=== PATIENT | male | born 1965 | race Two or more races ===

== ENCOUNTER 2023-10-25 06:55 | Day surgery (SDC) | payer OTHER ==
[2023-10-18 11:13] LABS: URINE APPEARANCE Clear; URINE BILIRRUBIN Negative (NEGATIVE); URINE BLOOD Negative; URINE COLOR Yellow; URINE GLUCOSE Negative (NEGATIVE); URINE LEUKOCYTE Negative; URINE NITRATE Negative; URINE PROTEIN Negative (NEGATIVE)
[2023-10-18 11:16] LABS: HEMATOCRIT 44.6 % (39.0-48.0); HEMOGLOBIN 15.7 g/dL (13-16.00); MEAN CELL VOLUME 91.8 fL (80.0-100.00); MEAN CORPUSCULAR HEMOGLOBIN 32.2 pg (27.00-32.0); MEAN CORPUSCULAR HGB CONC 35.1 g/dl (32.0-36.0); PLATELET COUNT 189 K/uL (150-450); RED BLOOD COUNT 4.86 M/uL (4.00-6.00)
[2023-10-18 11:17] LABS: URINE BACTERIA 12.5 uL (0.0-1933); URINE EPITHELIAL CELLS 1.6 uL (0.0-38.8); URINE WBC 4.7 uL (0.0-23.2)
[2023-10-18 11:28] LABS: INR 0.97; PARTIAL THROMBOPLASTIN TIME 29.4 SECONDS (22.0-34.0); PROTHROMBIN TIME 10.2 SECONDS (9.0-11.5)
[2023-10-18 11:35] LABS: ALBUMIN 3.7 gm/dL (3.4-5.0); BILIRUBIN TOTAL 0.54 mg/dL (0.3-1.2); CALCIUM 9.2 mg/dL (8.5-10.1); CREATININE SERUM 0.95 mg/dL (0.70-1.30); GFR 81.43; POTASSIUM 4.13 mEq/L (3.5-5.1); TOTAL PROTEIN 7.7 gm/dL (6.4-8.2)
[2023-10-18 11:41] LABS: URINE RBC 1.7 uL (0.0-20.8)
[~2023-10-25] VITALS: Ht 172.7 cm; Wt 72.6 kg
[~2023-10-25 06:55] MED LIST: LIPITOR40 M1
[2023-10-25] MEDS ORDERED: CEFTRIAXONE SODIUM 2,000 MG VIAL ONE (12:24)
[2023-10-25] MEDS ORDERED: METRONIDAZOLE/SODIUM CHLORIDE 500 MG/100 ML PIGGYBACK IV ONE ×2 (12:24→15:15)
[2023-10-25] MEDS ORDERED: POVIDONE-IODINE 118 ML BOTT TOP ONE ×2 (14:15→15:15)
[2023-10-25] MEDS ORDERED: BUPIVACAINE HCL/PF 0.5% 30ML ML ONE (14:15)
[2023-10-25] MEDS ORDERED: LIDOCAINE HCL 1%/Epi 20ML VIAL IJ ONE ×2 (14:15→15:15)
[2023-10-25] MEDS ORDERED: DIBUCAINE 15 GM OINT..GM. TUBE ONE (14:15)
[2023-10-25] MEDS ORDERED: HEMOSTATIC MATRIX 1 KIT KIT TOP ONE ×2 (14:15→15:15)
[2023-10-25] MEDS ORDERED: DIBUCAINE 30 GM TUBE RECTAL ONE (15:15)
[2023-10-25] MEDS ORDERED: BUPIVACAINE HCL 30 ML VIAL IJ ONE (15:15)
[2023-10-25] MEDS ORDERED: CEFTRIAXONE SODIUM 2,000 MG VIAL IV ONE (15:15)
[2023-10-25] MEDS ORDERED: HYDROGEN PEROXIDE 118 ML SOLUTION TOP ONE (15:30)
[2023-10-25] MEDS ORDERED: NEURONTIN300 MG PO (16:10)
[2023-10-25] MEDS ORDERED: PERCOCET 5-3251 EACH PO (16:10)
[2023-10-25] MEDS ORDERED: CELECOXIB200 MG PO (16:11)
[2023-10-25] MEDS ORDERED: HIBICLENS118 ML TOP (16:11)
== END 2023-10-25 22:10 | disposition home or self-care (01) ==
LOC: CIR.AMB 06:55
PROVIDERS: ATTEND Surgery
DX: K60.3 Anal fistula (principal); I10 Essential (primary) hypertension

== ENCOUNTER 2024-01-31 05:25 | Day surgery (SDC) | payer OTHER ==
[2024-01-29 10:00] LABS: URINE APPEARANCE Clear; URINE BILIRRUBIN Negative (NEGATIVE); URINE BLOOD Negative; URINE COLOR Yellow; URINE GLUCOSE Negative (NEGATIVE); URINE LEUKOCYTE Negative; URINE NITRATE Negative; URINE PROTEIN Negative (NEGATIVE); URINE UROBILINOGEN 0.2 E.U./dl
[2024-01-29 10:04] LABS: HEMATOCRIT 44.8 % (39.0-48.0); HEMOGLOBIN 15.7 g/dL (13-16.00); MEAN CELL VOLUME 90.9 fL (80.0-100.00); MEAN CORPUSCULAR HEMOGLOBIN 31.9 pg (27.00-32.0); MEAN CORPUSCULAR HGB CONC 35.1 g/dl (32.0-36.0); PLATELET COUNT 216 K/uL (150-450); RED BLOOD COUNT 4.93 M/uL (4.00-6.00); RED CELL DISTRIBUTION WIDTH 13.1 % (11.5-14.5)
[2024-01-29 10:06] LABS: URINE RBC 2.7 uL (0.0-20.8); URINE WBC 4.1 uL (0.0-23.2)
[2024-01-29 10:07] LABS: URINE BACTERIA 3.7 uL (0.0-1933); URINE EPITHELIAL CELLS 0.6 uL (0.0-38.8)
[2024-01-29 10:37] LABS: ALBUMIN 4.1 gm/dL (3.4-5.0); BILIRUBIN TOTAL 0.71 mg/dL (0.3-1.2); CALCIUM 10.1 mg/dL (8.5-10.1); CREATININE SERUM 0.98 mg/dL (0.70-1.30); GFR 78.56; GLOBULINA 3.8 G/DL (2.4-3.5); POTASSIUM 4.02 mEq/L (3.5-5.1); TOTAL PROTEIN 7.9 gm/dL (6.4-8.2)
[2024-01-29 10:41] LABS: INR 0.99; PARTIAL THROMBOPLASTIN TIME 28.2 SECONDS (22.0-34.0); PROTHROMBIN TIME 10.4 SECONDS (9.0-11.5)
[~2024-01-31 05:25] MED LIST changes: +CELECOXIB200 MG PO; +HIBICLENS118 ML TOP; +NEURONTIN300 MG PO; +PERCOCET 5-3251 EACH PO
[2024-01-31] MEDS ORDERED: HEMOSTATIC MATRIX 1 KIT KIT TOP ONE (08:15)
[2024-01-31] MEDS ORDERED: HYDROGEN PEROXIDE 118 ML SOLUTION MC ONE (08:15)
[2024-01-31] MEDS ORDERED: CEFTRIAXONE SODIUM 2,000 MG in 0.9 % SODIUM CHLORIDE 50 ML IV ONE (08:15)
[2024-01-31] MEDS ORDERED: DIBUCAINE 30 GM TUBE RC ONE (08:15)
[2024-01-31] MEDS ORDERED: LIDOCAINE HCL 1%/EPINEPHRINE 20ML VIAL IJ ONE (08:15)
[2024-01-31] MEDS ORDERED: METRONIDAZOLE/SODIUM CHLORIDE 200 ML IV ONE (08:15)
[2024-01-31] MEDS ORDERED: BUPIVACAINE HCL 30 ML VIAL IJ ONE (08:15)
[2024-01-31] MEDS ORDERED: POVIDONE-IODINE 118 ML BOTT TP ONE (08:15)
[2024-01-31] MEDS ORDERED: NEURONTIN300 MG PO (09:15)
[2024-01-31] MEDS ORDERED: CELECOXIB200 MG PO (09:15)
[2024-01-31] MEDS ORDERED: PERCOCET 5-3251 EACH PO (09:15)
[2024-01-31] MEDS ORDERED: CIPRO500 MG PO (09:16)
[2024-01-31] MEDS ORDERED: HIBICLENS118 ML TOP (09:16)
[2024-01-31] MEDS ORDERED: METRONIDAZOLE500 MG PO (09:16)
== END 2024-01-31 15:15 | disposition home or self-care (01) ==
LOC: CIR.AMB 05:25
PROVIDERS: ATTEND Surgery
DX: K60.3 Anal fistula (principal); M19.90 Unspecified osteoarthritis, unspecified site